=== PATIENT | male | born 1940 | race Caucasian/White ===

== ENCOUNTER 2019-08-02 05:57 | Day surgery (SDC) ==
[2019-07-26 08:32] LABS: URINE SOURCE CLEAN CATCH
--- NOTE | 2019-07-26 09:00 | EKG Report ---
Test Performed on : 07/26/2019 08:12:06 AM Test Reason : PAT Blood Pressure : / mmHG Vent. Rate : 078 BPM Atrial Rate : 078 BPM P-R Int : 164 ms QRS Dur : 126 ms QT Int : 398 ms P-R-T Axes : 067 -66 036 degrees QTc Int : 453 ms Normal sinus rhythm. Left axis deviation Nonspecific intraventricular block Abnormal ECG No previous ECGs available Confirmed by Ras BARNHART, Ken Brian ([id number]) on 07/27/2019 2:34:13 PM
[2019-07-26 09:51] LABS: BASO# 0.06 X1000 (0.0-0.2); BASO% 0.9 % (0.0-0.8); EOS# 0.25 X1000 (0.0-0.7); EOS% 3.8 % (0.0-10.0); HEMATOCRIT 45.6 % (42.0-52.0); HEMOGLOBIN 15.3 g/dL (14.0-18.0); LYMPH# 1.03 X1000 (1.2-3.4); LYMPH% 15.6 % (20.5-51.1); MCH 29.7 PG (27-31); MCHC 33.6 g/dL (33-37); MCV 88.5 FL (81-99); MONO# 0.44 X1000 (0.11-0.59); MONO% 6.7 % (1.7-9.3); NEUT# 4.83 X1000 (1.4-6.5); PLT 187 X1000 (130-400); RBC 5.15 XMIL (4.7-6.1); RDW 12.6 % (11.5-14.5); WBC 6.61 X1000 (4.8-10.8)
[2019-07-26 09:54] LABS: BILIRUBIN URINE NEGATIVE (NEGATIVE); BLOOD URINE NEGATIVE (NEGATIVE); COLOR YELLOW; GLUCOSE URINE >1000 mg/dL (NEGATIVE); KETONE URINE NEGATIVE (NEGATIVE); LEUKOCYTES URINE NEGATIVE (NEGATIVE); NITRITE URINE NEGATIVE (NEGATIVE); PH URINE 6.5; PROTEIN URINE NEGATIVE (NEGATIVE); SP GRAVITY URINE 1.023; TURBIDITY URINE CLEAR (CLEAR); UROBILINOGEN URINE NORMAL (NORMAL)
[2019-07-26 09:55] LABS: UR EPITHELIAL CELLS <10 /HPF (<10); URINE BACTERIA NEGATIVE /HPF; URINE RBC <10 /HPF (<10); URINE WBC <10 /HPF (<10)
[2019-07-26 10:00] LABS: INR 0.94; PROTIME 12.7 Seconds (11.0-16.0)
[2019-07-26 10:01] LABS: PTT 28.6 Seconds (22.3-41.8)
[2019-07-26 10:15] LABS: HEMOGLOBIN A1C 8.5 % (4.8-6.0)
[2019-07-26 10:20] LABS: ALBUMIN 4.3 g/dL (3.5-5.0); CALCIUM 9.3 mg/dL (8.8-10.2); CREATININE 1.3 mg/dL (0.7-1.2); POTASSIUM 4.7 mmol/L (3.5-5.1)
[2019-08-02] MEDS ORDERED: REGLAN ONE (06:45)
[2019-08-02] MEDS ORDERED: COLACE ONE (06:45)
[2019-08-02] MEDS ORDERED: PEPCID ONE (06:45)
[2019-08-02] MEDS ORDERED: LR 1,000 ML ONE (06:46)
[2019-08-02] MEDS ORDERED: CELEBREX ONE (06:46)
[2019-08-02] MEDS ORDERED: KEFZOL 1 GM/D5W 2 GM/100 ML IVPB ONE (06:46)
[2019-08-02] MEDS ORDERED: LYRICA ONE (06:46)
[2019-08-02] MEDS ORDERED: TORADOL ONE (07:24)
[2019-08-02] MEDS ORDERED: MARCAINE 0.25% PF ONE (07:24)
[2019-08-02] MEDS ORDERED: EXPAREL 1.3% ONE (07:24)
[2019-08-02] MEDS ORDERED: SODIUM CHLORIDE 0.9% ONE (07:24)
[2019-08-02] MEDS ORDERED: VANCOMYCIN ONE (07:24)
[2019-08-02] MEDS ORDERED: DURAMORPH ONE (07:24)
[2019-08-02] MEDS ORDERED: CYKLOKAPRON 1,000 MG/NS 1,000 MG/100 ML IVPB ONE (07:24)
[2019-08-02] MEDS ORDERED: NEOSPORIN G.U. IRRIGANT ONE (07:25)
[2019-08-02] MEDS ORDERED: FENTANYL ONE (07:33)
[2019-08-02] MEDS ORDERED: DIPRIVAN 1% ONE (07:33)
[2019-08-02] MEDS ORDERED: ZOFRAN ONE ×2 (08:51→12:11)
[2019-08-02] MEDS ORDERED: DECADRON ONE ×2 (08:51→12:11)
[2019-08-02] MEDS ORDERED: OFIRMEV 1000 MG/ISOTONIC SOLN 0 MG/0 ML BOTTLE ONE (08:51)
[2019-08-02] MEDS ORDERED: SODIUM CHLORIDE 0.9% 10 ML ONE (08:53)
[2019-08-02] MEDS ORDERED: NEO-SYNEPHRINE ONE (08:53)
[2019-08-02 09:18] LABS: URINE SOURCE CATH
[2019-08-02 09:27] LABS: BILIRUBIN URINE NEGATIVE (NEGATIVE); BLOOD URINE NEGATIVE (NEGATIVE); COLOR YELLOW; GLUCOSE URINE >1000 mg/dL (NEGATIVE); KETONE URINE 20 mg/dL (NEGATIVE); LEUKOCYTES URINE NEGATIVE (NEGATIVE); NITRITE URINE NEGATIVE (NEGATIVE); PROTEIN URINE NEGATIVE (NEGATIVE); SP GRAVITY URINE 1.017; TURBIDITY URINE CLEAR (CLEAR); UR EPITHELIAL CELLS <10 /HPF (<10); URINE BACTERIA NEGATIVE /HPF; URINE RBC <10 /HPF (<10); URINE WBC <10 /HPF (<10); UROBILINOGEN URINE NORMAL (NORMAL)
[2019-08-02] MEDS ORDERED: NS 1,000 ML ONE (11:20)
--- NOTE | 2019-08-02 12:04 | Diag Imaging Result Doc PS360 ---
KNEE 1-2 VIEWS-RIGHT - 08/02/2019 INDICATION: Right total knee TECHNIQUE: Two views COMPARISON: None FINDINGS: There has been right total knee arthroplasty with patellar resurfacing. Alignment is anatomic. No hardware fracture or loosening. IMPRESSION: No complication. Electronically signed by Westley Lott 08/02/2019 12:01 PM
[2019-08-02] MEDS ORDERED: OFIRMEV 1000 MG/ISOTONIC SOLN 1,000 MG/100 ML BOTTLE ONE (12:11)
[2019-08-02] MEDS ORDERED: ZOFRAN PO PRN (12:15)
[2019-08-02] MEDS ORDERED: MORPHINE IV PRN ×3 (12:15)
[2019-08-02] MEDS: OXY IR PO PRN ×2 (15:26→22:16)
[2019-08-02] MEDS: KEFZOL 2 GM/D5W 2 GM/50 ML IVPB IV SCH (15:28)
--- NOTE | 2019-08-02 16:56 | OPERATIVE NOTE ---
PROCEDURE DATE: 08/02/2019 PREOPERATIVE DIAGNOSIS: Degenerative arthritis of the right knee. POSTOPERATIVE DIAGNOSIS: Degenerative arthritis of the right knee. PROCEDURE: Right total knee arthroplasty with DePuy Attune size 7, posterior stabilized femur, size 8 tibial tray, a 6 mm rotating platform tibial insert, and a 38 mm medialized anatomic patella. SURGEON: Dr. Awais Novoa 1ST ENAMEL DRIER: CLAUDIA West, necessary proper retraction and manipulation of the extremity during the case and improved efficiency. SECOND ENAMEL DRIER: Parker York RN. ANESTHESIA: Spinal. IV FLUIDS: 1900 mL lactated Ringer's. ESTIMATED BLOOD LOSS: 50 mL. TOURNIQUET TIME: 90 minutes at 300 mmHg. COMPLICATIONS: None. INDICATION: The patient is an 79-year-old male with chronic history of worsening pain and discomfort of his right knee. Continued pain and discomfort despite appropriate treatment. He has continued with pain and discomfort. Pain has progressed to affect his activities of daily living. X-rays did reveal degenerative osteoarthritis. Recommendation to proceed with right total knee arthroplasty was offered. Risks and benefits of surgery were explained including anesthesia, , bleeding, infection, failure to relieve pain, postop stiffness, nerve injury blood clots, and other imponderables. All questions were answered. The patient's family wished to proceed with surgery. DETAILS OF OPERATION: The patient was taken to the operating room and underwent spinal anesthesia. After adequate anesthesia was obtained, the patient's right lower extremity was prepped and draped in usual sterile fashion. Esmarch was used to exsanguinate the right lower extremity and the tourniquet was inflated to 300 mmHg. A standard anterior incision made with skin knife. Medial and lateral skin envelopes were developed. Standard medial parapatellar arthrotomy was then performed. Patella fat pad was excised. The patella was everted and resected in standard fashion and a protective disk was placed. Approximately 1 cm anterior to the PCL insertion, starting reamer was passed. Intramedullary guide with a distal femoral cutting block was pinned in position. Distal femoral cut was then performed in a standard fashion. A sizing block was placed and measured size 7. Corresponding pins were placed. A size 7 cutting block was pinned in position. Anterior, posterior, and chamfer cuts were then made. Attention then turned to the proximal tibia. Using the extramedullary guide, the proximal tibia cutting block was pinned in position. The proximal tibia was then resected in standard fashion. Had good alignment confirmed with the alignment boom. The proximal tibia was then resected in the standard fashion. Medial and lateral menisci were excised. A curved osteotome was used to remove the posterior osteophytes off the distal femur. After this had been performed, attention was turned back to the proximal tibia. Size 8 tibial tray appeared to be the correct size. This was pinned in position followed by a central reamer and a fin punch. A box cutting guide was then pinned on the distal femur. A box cut was performed. A trial femoral component was then placed. Two lug holes were drilled. A trial tibial insert was then placed and had good soft tissue balancing. Patella was everted. The protective disk was removed. The size 38 appeared to correct size. Core holes were drilled. Trial patella component was then placed and had good patellofemoral tracking. The trial components were then removed. Copious irrigation performed with antibiotic pulsatile lavage while vancomycin was mixed in the cement on the back table. Sequential cementing was then performed first with the tibial tray and excess cement was removed with a [place] followed by the femoral component. Excess cement with a [place] followed by trial tibial insert in full extension and axial loading was maintained while cement cured. Peripheral cement was removed with a small osteotome. The patella component was then cemented in standard fashion. Patella clamp was placed. While cement was curing, Exparel was placed in deep soft tissue, as well subcutaneous tissue. After cement had cured peripheral cement was removed with a small osteotome. The 6 mm rotating platform tibial insert appeared to correct size. The trial insert was removed. Exparel was placed, deep posterior capsule. The wound was copiously irrigated once again with antibiotic pulsatile lavage. A 6 mm rotating platform tibial insert was then placed. These were then carried through range of motion with good soft tissue balance, good range of motion and good patellofemoral tracking. A 1/8 Hemovac drain was placed and was not sewn in. Copious irrigation once again with antibiotic pulsatile lavage. Number 1 Vicryl was used to repair the arthrotomy, followed by 2-0 Vicryl to repair the subcutaneous tissue, and skin christi. Adaptic, sterile 4 x 4's, Webril, cryo unit, Ben wrap was applied to the left lower extremity. Patient tolerated the procedure well. Transferred to the recovery in stable condition. cc: Awais Novoa MD MTDD
[2019-08-02] MEDS ORDERED: CLARITIN PO PRN (19:30)
[2019-08-02] MEDS ORDERED: LEVEMIR SUBQ PRN (19:30)
[2019-08-02] MEDS ORDERED: XALATAN 0.005% OPH SOLN BOTH EYES SCH (21:00)
[2019-08-02] MEDS ORDERED: CRESTOR PO SCH (21:00)
[2019-08-02] MEDS ORDERED: GLUCOPHAGE PO SCH (21:00)
[2019-08-02] MEDS: PERIDEX MT SCH (22:14)
[2019-08-02] MEDS: FLOMAX PO SCH (22:15)
[2019-08-02] MEDS: COLACE PO SCH (22:17)
[2019-08-03] MEDS: KEFZOL 2 GM/D5W 2 GM/50 ML IVPB IV SCH (00:26)
[2019-08-03] MEDS ORDERED: XARELTO PO SCH (06:00)
--- NOTE | 2019-08-03 06:43 | ORTHOPAEDICS PROGRESS NOTE ---
DATE: 08/03/2019 SUBJECTIVE: The patient is a 79-year-old male who is 1 day status post right total knee arthroplasty. He is currently resting comfortably. PHYSICAL EXAMINATION: The patient's right lower extremity wound looks good. There is no signs or symptoms of infection. Calf is soft. He has active dorsiflexion plantar flexion. He was had been able to ambulate with Physical Therapy yesterday. LABORATORY: Pending. IMPRESSION: Postoperative day #1 status post right total knee arthroplasty. PLANS: We will plan on discharging home after physical therapy. Patient will follow up on 08/14/2019. cc: Awais Novoa MD
[2019-08-03] MEDS: OXY IR PO PRN ×2 (06:50→10:46)
[2019-08-03 07:33] LABS: HEMATOCRIT 29.7 % (42.0-52.0); HEMOGLOBIN 10.3 g/dL (14.0-18.0)
[2019-08-03 08:02] LABS: CALCIUM 8.3 mg/dL (8.8-10.2); CREATININE 1.3 mg/dL (0.7-1.2); POTASSIUM 4.6 mmol/L (3.5-5.1)
[2019-08-03 08:08] VITALS: BP 101/45
[2019-08-03] MEDS: COLACE PO SCH (08:50)
[2019-08-03] MEDS: FLOMAX PO SCH (08:50)
[2019-08-03] MEDS: PERIDEX MT SCH (08:51)
[2019-08-03] MEDS ORDERED: GLUCOPHAGE PO SCH (09:00)
[2019-08-03] MEDS ORDERED: NON-FORMULARY MED (Empagliflozin [Jardiance] 0 MG) PO SCH (09:00)
[2019-08-03] MEDS ORDERED: PRINIVIL PO SCH (09:00)
[2019-08-03] MEDS ORDERED: ASPIRIN PO SCH (09:00)
== END 2019-08-03 10:53 | disposition home health service (06) ==
LOC: OR 05:57 → 4N 05:57 → OR 08-03 10:53
PROVIDERS: ATTEND Orthopaedic Surgery Adult Reconstructive Orthopaedic Surgery